=== PATIENT | female | born 1960 | race Caucasian/White ===

== ENCOUNTER → 2016-12-12 | Outpatient (CLI) | payer SELFPAY ==
[2016-12-12 10:31] LABS: BASOPHILS # (AUTO) 0.06 10*3/UL; BASOPHILS % (AUTO) 0.9 % (0-1); EOSINOPHILS # (AUTO) 0.21 10*3/UL; HEMATOCRIT 39.8 % (37.0-47.0); HEMOGLOBIN 13.1 g/dL (12.0-16.0); LYMPHOCYTES # (AUTO) 1.48 10*3/uL; MEAN CORPUSCULAR HGB CONC 32.9 g/dL (33-37); MEAN CORPUSCULAR VOLUME 91.3 FL (81-99); MEAN PLATELET VOLUME 8.9 FL (7.4-12.2); MONOCYTES # (AUTO) 0.48 10*3/UL (0.3-0.8); MONOCYTES % (AUTO) 6.9 % (5-15); NEUTROPHILS # (AUTO) 4.73 10*3/UL; NEUTROPHILS % (AUTO) 67.7 % (50-80); RED BLOOD COUNT 4.36 10^6/uL (4.20-5.40)
[2016-12-12 10:32] LABS: PLATELET MORPHOLOGY COMMENT NORMAL MORPHOLOGY (NORM); RBC MORPHOLOGY COMMENT NORMAL MORPHOLOGY (NORM); WBC MORPHOLOGY COMMENT NORMAL MORPHOLOGY (NORM)
[2016-12-12 10:46] LABS: BLOOD UREA NITROGEN 12 mg/dL (7-22); CALCIUM 8.9 mg/dL (8.7-10.7); EST GLOMERULAR FILTRATION > 60 (>60 ml/min/1.73m(2)); SERUM ALBUMIN 4.1 g/dL (3.5-4.8)
== END ==
LOC: MOB LAB 08:10
PROVIDERS: ATTEND Physician Assistant
DX: R60.9 Edema, unspecified (principal); R73.9 Hyperglycemia, unspecified; I10 Essential (primary) hypertension; R31.29 Other microscopic hematuria; R09.81 Nasal congestion; R05 Cough
CPT/HCPCS: 36415; 80053; 84443; 85025

== ENCOUNTER 2017-02-17 07:07 | Emergency (ER) | payer SELFPAY ==
[2017-02-17] MEDS ORDERED: COCAINE HCL 4% - 4 ML TOPICAL SOLUTION TOPICAL ONE ×2 (07:14→07:27)
[2017-02-17] MEDS ORDERED: NORMAL SALINE 10 ML SYRINGE FLUSH IVP PRN (07:25)
[2017-02-17 07:39] LABS: BASOPHILS # (AUTO) 0.11 10*3/UL; BASOPHILS % (AUTO) 1.7 % (0-1); EOSINOPHILS # (AUTO) 0.13 10*3/UL; HEMATOCRIT 39.6 % (37.0-47.0); HEMOGLOBIN 13.6 g/dL (12.0-16.0); LYMPHOCYTES # (AUTO) 1.14 10*3/uL; MEAN CORPUSCULAR HEMOGLOBIN 30.4 PG (27-31); MEAN CORPUSCULAR HGB CONC 34.3 g/dL (33-37); MEAN CORPUSCULAR VOLUME 88.4 FL (81-99); MEAN PLATELET VOLUME 9.1 FL (7.4-12.2); MONOCYTES # (AUTO) 0.47 10*3/UL (0.3-0.8); MONOCYTES % (AUTO) 7.3 % (5-15); NEUTROPHILS # (AUTO) 4.58 10*3/UL; NEUTROPHILS % (AUTO) 70.9 % (50-80); RED BLOOD COUNT 4.48 10^6/uL (4.20-5.40)
[2017-02-17 07:43] LABS: PLATELET MORPHOLOGY COMMENT NORMAL MORPHOLOGY (NORM); RBC MORPHOLOGY COMMENT NORMAL MORPHOLOGY (NORM); WBC MORPHOLOGY COMMENT NORMAL MORPHOLOGY (NORM)
[2017-02-17 07:47] LABS: BLOOD UREA NITROGEN 10 mg/dL (7-22); BUN/CREATININE RATIO 16.66 (6-20); CALCIUM 9.7 mg/dL (8.7-10.7); EST GLOMERULAR FILTRATION > 60 (>60 ml/min/1.73m(2)); SERUM ALBUMIN 4.3 g/dL (3.5-4.8)
[2017-02-17 08:00] VITALS: TEMP 96.7
--- NOTE | 2017-02-17 08:28 | PDOC ---
Epistaxis / Nasal FB - General Chief Complaint: Nasal/Mouth Problem /Injury Stated Complaint: nose bleed Date Seen by Provider: 02/17/17 Time Seen by Provider: 07:10 Source: POSITIVE: Patient Exam Limitations: POSITIVE: No limitations Nurse's Notes Reviewed & Considered: Yes - History of Present Illness Initial Comments: The patient is a 56-year-old female who presents to the emergency department with a nosebleed. She states that she has been having some intermittent bleeding from her right nares for the past 4 days. This morning at approximately 6 AM her nose started bleeding and has been bleeding significantly since then. She has been unable to get this to stop. She is having blood primarily out of the right side and down the back of her throat. She denies taking any blood thinners. She has not had any recent illness or trauma. She states that she previously took medication for bipolar and high blood pressure however she has not taken any medications for the past 3 months. - Patient Allergies Allergies/Adverse Reactions: Allergies Allergy/AdvReac Type Severity Reaction Status Date / Time codeine Allergy Severe trouble Verified 02/17/17 07:41 breathing and rash meperidine HCl [From Demerol] Allergy Severe trouble Verified 02/17/17 07:41 breathing - Patient Home Medications Home Medications: Home Medications Atenolol 25 mg PO DAILY #30 tab 02/17/17 Cephalexin [Keflex] 500 mg PO Q8H #15 capsule 02/17/17 Past Medical History - heen HEENT History: Denies History Cardiovascular History: Hypertension Additional Cardiovasular History: history of treatment but has been off meds Respiratory History: Denies History Gastrointestinal History: Denies History Genitourinary History: Denies History Endocrine History: Denies History Musculoskeletal History: Denies History Prosthesis or Implant: No Neurological History: Denies History Blood Disorders: Denies History Psychiatric History: Bi Polar Disorder Additional Psychiatric History: off meds x 3 months Female Reproductive History: Denies History LMP: age 54 Obstetrical History: Delivery Additional Obstetrical History: x2 Cancer History: Denies History In Past Year Been Physically Harmed or Verbally Threatened: No History of MDRO: No Tobacco Use: Never Smoker Alcohol Use: Other Type of alcohol normally used: Wine How much alcohol do you normally drink a day?: wine nightly Substance Use Type: None Previous Surgical History: Yes Anesthesia Reactions: No Significant Family History: No pertinent family hx Past Medical History Reviewed: Reviewed - No Changes ROS - Limitations ROS Limitations: No Limitations Constitution: DENIES: Fever Cardiovascular: REPORTS: Denies Cardiac Symptoms Respiratory: REPORTS: Denies Resp Symptoms Neurological: REPORTS: Denies Neuro Symptoms Nose Complaint Exam - General Appearance General Appearance: POSITIVE: Alert, Cooperative, No Acute Distress - HEENT Head / Face: POSITIVE: No Facial Swelling Eyes: POSITIVE: Inspection Normal Ears: POSITIVE: Ears Normal Inspection Nose: POSITIVE: Other (the patient has active bleeding and clot from the right nares) Oropharynx: POSITIVE: Airway Intact, Voice Normal, Moist Mucous Membranes - Respiratory Respiratory: POSITIVE: Breath Sounds Normal - Cardiovascular Cardiovascular: POSITIVE: Heart Sounds Normal Procedure - Nose Complaint Procedure Clots Cleared: From Nasal Passages, By Blowing Medication Instilled: Cocaine External Pressure / Nose Pinched for (minutes): 5 Treatment: Other (5.5 cm rapid Rhino with airway placed) Procedure Note:: The patient had active bleeding from the right nares on arrival. Topical cocaine was applied using the atomizer syringe. A nasal clamp was applied. She continued to have significant bleeding despite the cocaine and clamped. Decision was made to go ahead and place a 5.5 cm rapid Rhino. This was placed in position and the balloon was inflated. The bleeding slowed to a slight bruise and subsequently stopped. The patient was observed for recurrent bleeding and had none here in the emergency room. Nose Complaint Progress - Results Reviewed by me Lab Results Reviewed: Yes Lab Results:: Laboratory Results 02/17/17 Range/Units 07:30 WBC 6.46 (4.8-10.8) 10^3/uL RBC 4.48 (4.20-5.40) 10^6/uL Hgb 13.6 (12.0-16.0) g/dL Hct 39.6 (37.0-47.0) % MCV 88.4 (81-99) FL MCH 30.4 (27-31) PG MCHC 34.3 (33-37) g/dL RDW Std Deviation 40.7 (39-50) fL RDW Coeff of [place] 12.9 (11.5-14.5) % Plt Count 310 (140-350) 10*3/uL MPV 9.1 (7.4-12.2) FL Immature Gran % (Auto) 0.5 (0-5) % Neut % (Auto) 70.9 (50-80) % Lymph % (Auto) 17.6 (10-50) % [place] % (Auto) 7.3 (5-15) % Eos % (Auto) 2.0 (0-8) % Baso % (Auto) 1.7 H (0-1) % Immature Gran # (Auto) 0.03 10*3/UL Neut # (Auto) 4.58 10*3/UL Lymph # (Auto) 1.14 10*3/uL [place] # (Auto) 0.47 (0.3-0.8) 10*3/UL Eos # (Auto) 0.13 10*3/UL Baso # (Auto) 0.11 10*3/UL WBC Morphology Comment Normal morphology (NORM) Plt Morphology Comment Normal morphology (NORM) RBC Morph Comment Normal morphology (NORM) PT 9.9 (9.7-11.4) secs INR 0.93 (0.00-5.90) N/A APTT 26.6 (22.6-36.2) SECS Sodium 137 (135-145) meq/L Potassium 3.6 L (3.8-5.2) meq/L Chloride 103 (98-112) meq/L Carbon Dioxide 23 (23-33) meq/L Anion Gap 11 (5-20) BUN 10 (7-22) mg/dL Creatinine 0.6 (0.50-1.20) mg/dL Estimated GFR > 60 (>60 ml/min/1.73m(2)) BUN/Creatinine Ratio 16.66 (6-20) Glucose 144 H (78-110) mg/dL Calculated Osmolality 285.0 (267-292) mOsm/kg Calcium 9.7 (8.7-10.7) mg/dL Total Bilirubin 0.8 (0.3-1.2) mg/dL AST 26 (8-39) IU/L ALT 37 (9-52) IU/L Alkaline Phosphatase 111 (38-126) IU/L Total Protein 7.5 (6.1-8.0) g/dL Albumin 4.3 (3.5-4.8) g/dL Globulin 3.2 (2.50-4.10) g/dL Albumin/Globulin Ratio 1.30 (1.3-2.0) mg/g - Patient's Progress MDM / ED Course: The patient had active bleeding on arrival to the emergency room from the right nares. Packing was placed per procedure note. The patient was observed in the emergency department and had no further bleeding here. Her blood pressure was significantly elevated on arrival. She states that she previously was taking 2 or 3 medications for blood pressure however discontinued them about 3 months ago along with her bipolar medications. After the nasal packing and after the patient had settled down her blood pressure came down into the 140s over 90s. The patient was advised to leave packing in place for the next 4 days. She will follow-up in the clinic for removal. She will return to the emergency room if she is unable to follow-up in the clinic. In addition she was started on Keflex 500 mg 3 times a day for 5 days while the packing is in place. She was also given a prescription for atenolol 25 mg daily for her blood pressure. She was advised to have her blood pressure rechecked next week. She will return to the emergency room if she develops increased bleeding, increased pain , fever, any worsening or change in symptoms. - Consult Counseled: POSITIVE: Patient, RE: Lab Results, RE: DX, RE: Need for F/U Patient Care Time - Estimated PCT Patient Care Time (In Minutes): 25 Vital Signs - Recent Vital Signs Vital Signs: Vital Signs (Last 8 hours) Temp Pulse Resp BP Pulse Ox 02/17/17 07:08 96.7 F L 95 22 190/122 96 - VS Reviewed Vital Signs Reviewed: Yes Discharge Clinical Impression: Epistaxis, HTN (hypertension) Discharge Disposition: Discharged to Home Condition: Fair Prescriptions / Orders: Atenolol 25 mg PO DAILY #30 tab Cephalexin [Keflex] 500 mg PO Q8H #15 capsule Patient Instructions Given at Discharge: Nosebleed (ED), Chronic Hypertension ( ED) Additional Instructions: You will need to leave the packing in place in the right nares for the next 4 days. You should try to schedule an appointment for follow-up in the clinic on Monday of next week for packing removal and blood pressure check. If you are unable to get into the clinic then you should return here to the emergency room for packing removal. You have been given a prescription for Keflex 500 mg 3 times a day for 5 days which is to prevent infection while you have the packing in place. In addition your blood pressure was quite elevated here in the emergency department. You have been started back on atenolol 25 mg daily. You will need to have your blood pressure rechecked next week as well. Return here to the emergency room if increased bleeding, increased pain or fever, any worsening or change in symptoms. Follow Up With: NONE,NONE [Primary Care Provider] -
[2017-02-17 08:31] VITALS: RESP 16
[2017-02-17] MEDS ORDERED: OXYMETAZOLINE 0.05% 15 ML NASAL SPRAY ONE (09:44)
[2017-02-17] MEDS ORDERED: OXYMETAZOLINE 0.05% 15 ML NASAL SPRAY ENOS ONE (10:07)
--- NOTE | 2017-02-17 11:17 | PDOC ---
Epistaxis / Nasal FB - General Chief Complaint: Nasal/Mouth Problem /Injury Stated Complaint: nose bleed Date Seen by Provider: 02/17/17 Time Seen by Provider: 09:25 Source: POSITIVE: Patient, Old records Exam Limitations: POSITIVE: No limitations Nurse's Notes Reviewed & Considered: Yes - History of Present Illness Initial Comments: The patient is a 56-year-old female. She reports that for the past 2 days she has had intermittent episodes of right sided epistaxis. She states the episodes normally occur after she forcefully blows her nose. Around 6:20 AM this morning she developed heavier bleeding and came to the emergency room. She arrived to the emergency room at around 7 AM this morning. She was evaluated by the emergency physician on duty at that time, and she had a Rhino rocket placed. She left the emergency room around 8:26 AM. Past medical history may be significant in that she has a history of hypertension, and was on antihypertensive medications, which she self discontinued. Blood pressure when she was seen in the emergency room the first time was 190/122. The emergency room physician who saw her at that time started her on atenolol. He also placed a Rhino Rocket. Laboratory evaluation during her first visit showed a white blood cell count of 6460, hemoglobin 13.6 hematocrit 39.6 and platelets 310,000. INR was 0.93 and PTT was 26.6. Complete metabolic panel was normal. Patient takes "sinus medications ", [id number] and she does not know whether or not this [id number] preparation contains nonsteroidal anti-inflammatory drugs. She states she does not take aspirin. History of bipolar disorder. Patient states that shortly after she returned home she noted some "closing" of blood around the Rhino Rocket and states the Rhino Rocket is causing her much discomfort and producing a headache. Timing: REPORTS: Abrupt (as above) Severity: Moderate Lasting (minutes): 60 Quality: REPORTS: "Pain" (from Rhino Rocket) Context: REPORTS: None Modifying Factors: improves with: Nothing Associated Symptoms: Recent Injury, Recent Illness, Fever, Chills, Diaphoresis, Nausea, Vomiting Blood, Light-Headedness, Fainting, Headache, Other Similar Symptoms Previously: Yes (as above) Recent Care Received: REPORTS: Recently Seen, Treated by MD (as above) Any Prior Injuries Related to Current Complaint?: No - Patient Allergies Allergies/Adverse Reactions: Allergies Allergy/AdvReac Type Severity Reaction Status Date / Time codeine Allergy Severe trouble Verified 02/17/17 07:41 breathing and rash meperidine HCl [From Demerol] Allergy Severe trouble Verified 02/17/17 07:41 breathing - Patient Home Medications Home Medications: Home Medications Atenolol 25 mg PO DAILY #30 tab 02/17/17 Cephalexin [Keflex] 500 mg PO Q8H #15 capsule 02/17/17 Past Medical History - heen HEENT History: Denies History Cardiovascular History: Hypertension Additional Cardiovasular History: history of treatment but has been off meds Respiratory History: Denies History Gastrointestinal History: Denies History Genitourinary History: Denies History Endocrine History: Denies History Musculoskeletal History: Denies History Prosthesis or Implant: No Neurological History: Denies History Blood Disorders: Denies History Psychiatric History: Bi Polar Disorder Additional Psychiatric History: off meds x 3 months Female Reproductive History: Denies History LMP: age 54 Obstetrical History: Delivery Additional Obstetrical History: x2 Cancer History: Denies History In Past Year Been Physically Harmed or Verbally Threatened: No History of MDRO: No Tobacco Use: Never Smoker Alcohol Use: Other Type of alcohol normally used: Wine How much alcohol do you normally drink a day?: wine nightly Substance Use Type: None Previous Surgical History: Yes Anesthesia Reactions: No Significant Family History: No pertinent family hx Past Medical History Reviewed: Reviewed - No Changes ROS - Limitations ROS Limitations: No Limitations Constitution: REPORTS: Denies Symptoms Cardiovascular: REPORTS: Denies Cardiac Symptoms Respiratory: REPORTS: Denies Resp Symptoms Neurological: REPORTS: Denies Neuro Symptoms Gastrointestinal: REPORTS: Denies GI Symptoms Endocrine: REPORTS: Denies Symptoms Musculoskeletal: REPORTS: Denies MS Symptoms ENT: REPORTS: Other (Epistaxis as above) Skin: REPORTS: Denies Skin Symptoms Lympathic: REPORTS: Denies Lympathic Symptoms Immunologic: POSITIVE: Denies Symptoms Psychiatric: POSITIVE: Denies Psych Symptoms Nose Complaint Exam - General Appearance General Appearance: POSITIVE: Alert, Cooperative, No Acute Distress, No Evidence of Trauma - HEENT Head / Face: POSITIVE: Atraumatic, Normal Inspection, No Facial Swelling Eyes: POSITIVE: Inspection Normal, PERRL, EOM's Intact, Eyelids Uninjured, Conjunctivae Uninjured, No Nystagmus, No Globe Trauma, Sclera Normal, Normal Corneal Inspection Ears: POSITIVE: Ears Normal Inspection, TM Normal Inspection, Auricle Normal, External Canal Normal Nose: POSITIVE: No Apparent Trauma, No CSF Leak, No Active Bleeding, Other ( Rhino Rocket removed. Some dried blood in right nare, but no active bleeding.) Oropharynx: POSITIVE: External Inspection Nml, Pharynx Inspect. Nml, Airway Intact, Voice Normal, Moist Mucous Membranes, No Oral Injury, Lips Normal, Gums Normal, No Drooling, No Thrush, Normal Gag Reflex, Other (no bleeding in the hypopharynx) Dental: POSITIVE: No Dental Injury - Neurological / Psychological Neurological: POSITIVE: Affect Apporpriate, Oriented X3, combine operator Normal As Tested, Motor Normal, Sensation Normal - Neck Neck: POSITIVE: Normal Inspection, Thyroid Normal - Respiratory Respiratory: POSITIVE: No Respiratory Distress, Breath Sounds Normal, Chest Non- Tender - Cardiovascular Cardiovascular: POSITIVE: Regular Rate and Rhythm, Heart Sounds Normal, Equal Pulses, Strong Pulses Peripheral Pulses: Radial (R): 2+, Radial (L): 2+ - Abdomen Abdomen: Soft: (All Quadrants), Normal Bowel Sounds: (All Quadrants), Denies Tenderness: (All Quadrants), No Splenomegaly: (All Quadrants), No Hepatomegaly: (All Quadrants), No Guarding: (All Quadrants), No Rebound: (All Quadrants), No Palpable Pulse: (All Quadrants), No Palpabale Mass: (All Quadrants), No Distention: (All Quadrants), No Rigidity: (All Quadrants) - Skin Skin: NEGATIVE: Normal Color, No Skin Rash, Pallor, Cyanosis, Skin Rash, Ecchymosis, Petechiae, Decubitus, Other Procedure - Nose Complaint Procedure Procedure By:: Dr. Dorantes Time of Procedure:: 17:25 Medication Instilled: Afrin Observe for Bleeding for (minutes):: 90 Inspection Method: Otoscope, Headlight, Nasal Speculum Treatment: Other (Metolazone pledgets) Procedure Note:: Rhino Rocket from right nostril removed. Was no active bleeding appreciated, although there was some blood at the distal portion of the Rhino Rocket. Dried blood clots were seen in the right nostril. No blood was seen going down the back of her throat. Pledgets soaked in metolazone were placed in the right nostril and then held in the nose by means of a nasal clamp. Patient was observed until around 11 AM and pledget was removed. No evidence of bleeding recurrence. Blood pressure 170/90. Patient states she is very relieved to have the Rhino Rocket removed. Nose Complaint Progress - Results Reviewed by me Lab Results Reviewed: Yes (from earlier this morning) Lab Results:: Laboratory Results 02/17/17 Range/Units 07:30 WBC 6.46 (4.8-10.8) 10^3/uL RBC 4.48 (4.20-5.40) 10^6/uL Hgb 13.6 (12.0-16.0) g/dL Hct 39.6 (37.0-47.0) % MCV 88.4 (81-99) FL MCH 30.4 (27-31) PG MCHC 34.3 (33-37) g/dL RDW Std Deviation 40.7 (39-50) fL RDW Coeff of [place] 12.9 (11.5-14.5) % Plt Count 310 (140-350) 10*3/uL MPV 9.1 (7.4-12.2) FL Immature Gran % (Auto) 0.5 (0-5) % Neut % (Auto) 70.9 (50-80) % Lymph % (Auto) 17.6 (10-50) % [place] % (Auto) 7.3 (5-15) % Eos % (Auto) 2.0 (0-8) % Baso % (Auto) 1.7 H (0-1) % Immature Gran # (Auto) 0.03 10*3/UL Neut # (Auto) 4.58 10*3/UL Lymph # (Auto) 1.14 10*3/uL [place] # (Auto) 0.47 (0.3-0.8) 10*3/UL Eos # (Auto) 0.13 10*3/UL Baso # (Auto) 0.11 10*3/UL WBC Morphology Comment Normal morphology (NORM) Plt Morphology Comment Normal morphology (NORM) RBC Morph Comment Normal morphology (NORM) PT 9.9 (9.7-11.4) secs INR 0.93 (0.00-5.90) N/A APTT 26.6 (22.6-36.2) SECS Sodium 137 (135-145) meq/L Potassium 3.6 L (3.8-5.2) meq/L Chloride 103 (98-112) meq/L Carbon Dioxide 23 (23-33) meq/L Anion Gap 11 (5-20) BUN 10 (7-22) mg/dL Creatinine 0.6 (0.50-1.20) mg/dL Estimated GFR > 60 (>60 ml/min/1.73m(2)) BUN/Creatinine Ratio 16.66 (6-20) Glucose 144 H (78-110) mg/dL Calculated Osmolality 285.0 (267-292) mOsm/kg Calcium 9.7 (8.7-10.7) mg/dL Total Bilirubin 0.8 (0.3-1.2) mg/dL AST 26 (8-39) IU/L ALT 37 (9-52) IU/L Alkaline Phosphatase 111 (38-126) IU/L Total Protein 7.5 (6.1-8.0) g/dL Albumin 4.3 (3.5-4.8) g/dL Globulin 3.2 (2.50-4.10) g/dL Albumin/Globulin Ratio 1.30 (1.3-2.0) mg/g - Patient's Progress Pain Medication Addressed: POSITIVE: Not Applicable School/Work Release Addressed: POSITIVE: Yes (patient was advised to rest in a cool environment for the rest of the day) Re-Examine Time:: 11:00 Re-Examine Comment: No evidence of bleeding recurrence. Status: POSITIVE: Improved, Re-Examined - Consult Counseled: POSITIVE: Patient, RE: Lab Results, RE: DX, RE: Need for F/U Patient Care Time - Estimated PCT Patient Care Time (In Minutes): 45 Vital Signs - Recent Vital Signs Vital Signs: Vital Signs (Last 8 hours) Temp Pulse Pulse Resp BP BP Pulse Ox 02/17/17 09:24 92 187/108 95 02/17/17 08:26 80 16 161/107 97 02/17/17 07:08 96.7 F L 95 22 190/122 96 - VS Reviewed Vital Signs Reviewed: Yes Discharge Clinical Impression: Epistaxis, HTN (hypertension) Discharge Disposition: Discharged to Home Condition: Fair Prescriptions / Orders: Atenolol 25 mg PO DAILY #30 tab Cephalexin [Keflex] 500 mg PO Q8H #15 capsule Patient Instructions Given at Discharge: Nosebleed (ED), Chronic Hypertension ( ED) Additional Instructions: You will need to leave the packing in place in the right nares for the next 4 days. You should try to schedule an appointment for follow-up in the clinic on Monday of next week for packing removal and blood pressure check. If you are unable to get into the clinic then you should return here to the emergency room for packing removal. You have been given a prescription for Keflex 500 mg 3 times a day for 5 days which is to prevent infection while you have the packing in place. In addition your blood pressure was quite elevated here in the emergency department. You have been started back on atenolol 25 mg daily. You will need to have your blood pressure rechecked next week as well. Return here to the emergency room if increased bleeding, increased pain or fever, any worsening or change in symptoms. Follow Up With: NONE,NONE [Primary Care Provider] -
== END 2017-02-17 11:12 | disposition home or self-care (01) ==
LOC: ER 07:07
DX: R04.0 Epistaxis (principal); R51 Headache; I10 Essential (primary) hypertension
CPT/HCPCS: 30901; 36415; 80053; 85025; 85610; 85730; 99282